=== PATIENT | male | born 1975 | race Caucasian/White ===

== ENCOUNTER 2018-12-29 19:06 | Emergency (ER) | payer BC, OTHER ==
[~2018-12-29] VITALS: Ht 175.3 cm; Wt 89.4 kg
[2018-12-29] MEDS ORDERED: morphine INJ 10 MG/ML 1ML (SYR OR VIAL) IM STA (19:28)
[2018-12-29] MEDS ORDERED: BACLOFEN 10 MG (LIORESAL) TAB PO SCH (19:30)
--- NOTE | 2018-12-29 20:13 | Diagnostic Imaging Report ---
PROCEDURE: CT lumbar spine without contrast. TECHNIQUE: Multiple contiguous axial images were obtained through the lumbar spine without the use of intravenous contrast. Sagittal and coronal reformations were then performed. Auto Exposure Controls were utilized during the CT exam to meet ALARA standards for radiation dose reduction. INDICATION: Low back pain radiating into the right leg. FINDINGS: The alignment of the lumbar spine is normal. The vertebral body heights are well-maintained. There is no spondylolysis or spondylolisthesis. No fractures are identified. There are no lytic or sclerotic lesions. At L4-5, there is loss of disc height and signal intensity. There is broad-based annular bulging, facet disease and thickening of the ligamentum flavum. There is moderate spinal stenosis with encroachment upon the lateral recess bilaterally, left greater than right. There is moderate right and mild left neuroforaminal encroachment. At L5-S1, there is some minimal annular bulging. The abdominal aorta is nonaneurysmal. There are no other focal soft tissue abnormalities. IMPRESSION: Moderate degenerative disc disease at L4-5. This could likely be better evaluated with MRI on an outpatient basis. No other acute abnormality in the lumbar spine. Dictated by: Dictated on workstation # [id number]
[2018-12-29] MEDS ORDERED: predniSONE 20 MG TAB PO ONE (20:30)
[2018-12-29] MEDS ORDERED: RX-HYDROCODONE/APAP 5/325 MG #4 TAB PK PO PRN (20:30)
[2018-12-29] MEDS ORDERED: ACHD5005 PO (20:33)
[2018-12-29] MEDS ORDERED: BACL10TA PO (20:33)
[2018-12-29] MEDS ORDERED: PRD50T PO (20:33)
--- NOTE | 2018-12-29 20:34 | ED Back Pain ---
General Chief Complaint: Back Problems Stated Complaint: BACK PAIN Nursing Triage Note: PT STATES BACK PAIN ONSET YESTERDAY. PT WAS WORKING OUT IN THE YARD YESTERDAY AND AT THE END OF THE DAY HAD PAIN IN LOWER BACK. PT DENIES NUMBNESS OR TINGLING IN LEGS. PT DENIES LOSS OF BOWEL OR BLADDER. PT STATES HISTORY OF L4-L5 SURGERY. Nursing Sepsis Screen: No Definite Risk Source of Information: Patient Exam Limitations: No Limitations History of Present Illness Date Seen by Provider: December 29, 2018 Time Seen by Provider: 19:20 Initial Comments 43 year old male patient who presents to the emergency room with complaints of low back pain after working in the yard yesterday. History of lumbar surgery due to ruptured disk. he denies loss of bowel/bladder or saddle paresthesia/numbness/tingling. Location: Lumbar Spine Timing/Duration: 1-2 Days Associated Symptoms: lower back pain Allergies and Home Medications Allergies Coded Allergies: No Known Drug Allergies (Unverified , 12/29/18) Home Medications Baclofen 10 Mg Tablet, 10 MG PO Q8H Prescribed by: SLOANE FRAGOSO on 12/29/182032 Hydrocodone Bit/Acetaminophen 1 Tab Tab, 1-2 EACH PO Q6H PRN for PAIN-MODERATE Prescribed by: SLOANE FRAGOSO on 12/29/182032 Prednisone 50 Mg Tab, 50 MG PO DAILY Prescribed by: SLOANE FRAGOSO on 12/29/182032 Patient Home Medication List Home Medication List Reviewed: Yes Review of Systems Constitutional: see HPI; No chills, No fever Musculoskeletal: see HPI, back pain All Other Systems Reviewed Negative Unless Noted: Yes Past Kcszjit-Lgtzqb-Dbnxnu Hx Past Med/Social Hx: Reviewed Nursing Past Med/Soc Hx Patient Social History Alcohol Use: Regular Use Alcohol Beverage of Choice: Beer Recreational Drug Use: No Smoking Status: Former Smoker 2nd Hand Smoke Exposure: No Recent Foreign Travel: No Contact w/Someone Who Travel: No Recent Infectious Disease Expo: No Recent Hopitalizations: No Physical Abuse: No Sexual Abuse: No Mistreated: No Fear: No Seasonal Allergies Seasonal Allergies: No Past Medical History Surgeries: Yes (BACK) Tonsillectomy Respiratory: No Cardiac: No Neurological: No Genitourinary: No Gastrointestinal: No Endocrine: No Cancer: No Psychosocial: No Integumentary: No Family Medical History Reviewed Nursing Family Hx Physical Exam Vital Signs Vital Signs - First Documented 5/28/19 19:23 Temp 97.6 Pulse 81 Resp 18 B/P (MAP) 149/76 (100) Pulse Ox 99 O2 Delivery Room Air Capillary Refill : Less Than 3 Seconds Height, Weight, BMI Height: 5'9.00" Weight: 197lbs. oz. 89.202423la; BMI Method:Stated General Appearance: No Apparent Distress, WD/WN Cardiovascular: Regular Rate, Rhythm, No Edema, No Gallop, No JVD, No Murmur, Normal Peripheral Pulses Respiratory: Chest Non Tender, Lungs Clear, Normal Breath Sounds, No Accessory Muscle Use, No Respiratory Distress, Accessory Muscle Use Back: Normal Inspection, No CVA Tenderness, Vertebral Tenderness (lumbar) Extremity: Normal Capillary Refill Neurologic/Psychiatric: Alert, Oriented x3, Normal Mood/Affect Skin: Normal Color, Warm/Dry Progress/Results/Core Measures Results/Orders My Orders Orders - SLOANE FRAGOSO Baclofen Tablet (Lioresal Tablet) (12/29/18 19:30) Morphine Injection (Morphine Injection (12/29/18 19:28) Ct Lumbar Spine Wo (12/29/18 19:28) Rx-Hydrocodone/Apap 5-325 Mg (Rx-Vicodin (12/29/18 20:30) Prednisone Tablet (Deltasone Tablet) (12/29/18 20:30) Im/Sub-Q Injection Non-Ab Ed (12/29/18 ) Vital Signs/I&O 12/29/18 12/29/18 19:23 20:46 Temp 97.6 97.6 Pulse 81 81 Resp 18 18 B/P (MAP) 149/76 (100) 149/76 (100) Pulse Ox 99 99 O2 Delivery Room Air Blood Pressure Mean: 100 Progress Progress Note : Time: 20:30 Progress Note I have seen and evaluated the patient. I have informed him of his imaging studies. He has had mild relief of pain after medication. He agrees with plan of care, plans for discharge, return precautions were given. Diagnostic Imaging Diagonstic Imaging: CT Comments NAME: [facility] LEV[facility] REC#: [id number] PHYSICIAN: SLOANE FRAGOSO CC: SLOANE FRAGOSO; RADHA AWAN MD Page 2 of 2 RADIOLOGY REPORT [facility]. [place], [place] CC: SLOANE FRAGOSO; RADHA AWAN MD Page 1 of 2 RADIOLOGY REPORT NAME: GLADYS LEVI [facility] REC#: [id number] PT STATUS: REG ER : 1975 PHYSICIAN: SLOANE FRAGOSO COMMUNITY DEVELOPMENT SPECIALIST ADMIT DATE: 12/29/18/ER Signed Date of Exam: 12/29/18 CT LUMBAR SPINE WO PROCEDURE: CT lumbar spine without contrast. TECHNIQUE: Multiple contiguous axial images were obtained through the lumbar spine without the use of intravenous contrast. Sagittal and coronal reformations were then performed. Auto Exposure Controls were utilized during the CT exam to meet ALARA standards for radiation dose reduction. INDICATION: Low back pain radiating into the right leg. FINDINGS: The alignment of the lumbar spine is normal. The vertebral body heights are well-maintained. There is no spondylolysis or spondylolisthesis. No fractures are identified. There are no lytic or sclerotic lesions. At L4-5, there is loss of disc height and signal intensity. There is broad-based annular bulging, facet disease and thickening of the ligamentum flavum. There is moderate spinal stenosis with encroachment upon the lateral recess bilaterally, left greater than right. There is moderate right and mild left neuroforaminal encroachment. At L5-S1, there is some minimal annular bulging. The abdominal aorta is nonaneurysmal. There are no other focal soft tissue abnormalities. IMPRESSION: Moderate degenerative disc disease at L4-5. This could likely be better evaluated with MRI on an outpatient basis. No other acute abnormality in the lumbar spine. Dictated by: Dictated on workstation # [id number] Dict: 12/29/182006 Trans: 12/29/182013 Interpreted by: RADHA AWAN MD Electronically signed by: RADHA AWAN MD 12/29/182013 Reviewed: Reviewed by Me Departure Impression Primary Impression: Back pain Qualified Codes: M54.5 - Low back pain Disposition: 01 HOME, SELF-CARE Condition: Stable/Unchanged Departure-Patient Inst. Decision time for Depature: 20:30 Referrals: NO,LOCAL PHYSICIAN (PCP/Family) Primary Care Physician Patient Instructions: Low Back Pain (DC) Add. Discharge Instructions: Take medications as directed. Call your neuro spine surgeon tomorrow to make an appointment for follow-up. Return back to the emergency room for worsening symptoms or concerns as needed. All discharge instructions reviewed with patient and/or family. Voiced understanding. Scripts Prednisone (Prednisone) 50 Mg Tab 50 MG PO DAILY for 4 Days, #4 TAB Prov: SLOANE FRAGOSO 12/29/18 Baclofen (Baclofen) 10 Mg Tablet 10 MG PO Q8H, #14 TAB Prov: SLOANE FRAGOSO 12/29/18 Hydrocodone Bit/Acetaminophen (Hydrocodone/Acetaminophen 5/325mg Tablet) 1 Tab Tab 1-2 EACH PO Q6H PRN for PAIN-MODERATE MDD 10 for 3 Days, #20 TAB 0 Refills Prov: SLOANE FRAGOSO 12/29/18 SLOANE FRAGOSO December 29, 2018 20:34
[2018-12-29 20:46] VITALS: BP 149/76
== END 2018-12-29 20:47 | disposition home or self-care (01) ==
LOC: ER 19:08
DX: M54.5 Low back pain (principal); Z79.52 Long term (current) use of systemic steroids; Z87.891 Personal history of nicotine dependence; Z90.89 Acquired absence of other organs; X50.3XXA Overexertion from repetitive movements, initial encounter; Y92.007 Garden or yard of unspecified non-institutional (private) residence as the place of occurrence of the external cause
CPT/HCPCS: 72131; 96372